=== PATIENT | female | born 1945 | race Caucasian/White ===

== ENCOUNTER → 2016-05-05 | Outpatient (CLI) | payer OTHER ==
[~2016-05-05] MED LIST: LIPITOR PO; MAXZIDE 75/50 T1 TAB PO; SYNTHROID PO
--- NOTE | ~2016-05-05 | BD1 ---
[facility] A Service of [facility] & [facility] RADIOLOGY TEXT RESULTS PATIENT: PATRICIA MANCILLA LOCATION: [facility] : [birth year] UNIT #: [id number] AGE: [address]: PAULINA CUTLER APRN SEX: F ORDER DR: [id number] [facility] [address] [place], [place] [address] [id number] O MR#: [id number] Acc #: [id number] NAME: PATRICIA MANCILLA : 1945 SEX: F STUDY DATE/TIME: 05/05/2016 15:16 UNIT: [facility] ROOM: STUDY DESCRIPTION: BD Dexa Bone Dens 1+ Site Attending Physician: Paulina Cutler M.D. Ordering Physician: Paulina Cutler M.D. Primary Care Physician: Paulina Cutler M.D. MEDICAL IMAGING REPORT This report is preliminary unless electronic signature is present EXAM DXA scan 05/05/2016 HISTORY Status post menopause with no hormone replacement therapy. Osteopenia. Removal of both ovaries and hysterectomy. Thyroid medication for 20 years. FINDINGS Bone mineral density in the lumbar spine from L1-L4 is 0.851 g/cm2 which is 1.8 standard deviations below the mean when compared to reference population which is characteristic of osteopenia. This is 0.3 standard deviations above the mean when compared to the age-matched population. Compared with 03/05/2014 there has been a decrease in bone mineral density in the lumbar spine of 0.2%. Bone mineral density in the left femoral neck was 0.706 g/cm2 which is 1.3 standard deviations below the mean when compared to the young adult reference population which is characteristic of osteopenia. This is 0.5 standard deviations above the mean when compared to the age-matched population. Compared with 03/05/2014 there has been a decrease in bone mineral density in the left hip of 9.3%. IMPRESSION Bone mineral density in the lumbar spine and the left hip characteristic of osteopenia. Compared with 03/05/2014 there has been a decrease in bone mineral density in the lumbar spine and the left hip. Dictated by... Edmundo R. Neville, M.D. THIS IS AN ELECTRONICALLY VERIFIED REPORT Edmundo Lozada M.D. at 05/06/2016 10:54 AM PAOLO/emileer TD: 05/05/2016 20:17 [facility]. [facility] A Service of [facility] & [facility] RADIOLOGY TEXT RESULTS PATIENT: PATRICIA MANCILLA LOCATION: [facility] : [birth year] UNIT #: [id number] AGE: [address]: PAULINA CUTLER APRN SEX: F ORDER DR: SURENDRA #: [id number] MEDICAL IMAGING REPORT COPY
== END | disposition home or self-care (01) ==
LOC: CWCC 14:50
DX: Z78.0 Asymptomatic menopausal state (principal); M85.89 Other specified disorders of bone density and structure, multiple sites; Z88.0 Allergy status to penicillin
CPT/HCPCS: 77080

== ENCOUNTER → 2016-05-29 | Outpatient (CLI) | payer OTHER ==
--- NOTE | ~2016-05-29 | MY11 ---
[facility] A Service of [facility] RADIOLOGY TEXT RESULTS PATIENT: PATRICIA MANCILLA LOCATION: [facility] : 47 UNIT #: [id number] AGE: [address]: PAULINA CUTLER APRN SEX: F ORDER DR: [id number] [facility] [address] [place], [place] [address] [id number] O MR#: [id number] Acc #: [id number] NAME: PATRICIA MANCILLA : 1945 SEX: F STUDY DATE/TIME: 05/29/2016 15:46 UNIT: [facility] ROOM: STUDY DESCRIPTION: MY Mammogram Screening Dig Venu Attending Physician: Paulina Cutler M.D. Referring Physician: Paulina Cutler M.D. Ordering Physician: Paulina Cutler M.D. Primary Care Physician: Paulina Cutler M.D. MEDICAL IMAGING REPORT This report is preliminary unless electronic signature is present EXAM Digital screening mammogram, 05/29/2016. HISTORY 71-year-old woman; positive family history, aunt. Previous left breast biopsy. Patient on replacement hormones. Annual screening. COMPARISONS Mammograms date to 11/02/2005, with most recent 05/09/2015. FINDINGS Digital imaging of each breast was completed, utilizing screening protocol. Review includes FDA-approved CAD device. Breast parenchyma is partially fatty replaced and mildly heterogeneous, with scattered parenchymal opacities remaining in each breast. Mild parenchymal dominance, upper outer quadrant, right breast, is stable. There is no interval-occurring breast mass. There are no suspicious microcalcification and no architectural deformity. IMPRESSION Stable benign mammogram. Annual screening recommended. Patients over the age of 40 are entered into a reminder system with target due date for the next mammogram. A result letter will also be sent to the patient. BIRADS: 2 Benign finding. Dictated by... [facility] A Service of [facility] & [facility] RADIOLOGY TEXT RESULTS PATIENT: PATRICIA MANCILLA LOCATION: [facility] : 47 UNIT #: [id number] AGE: [address]: PAULINA CUTLER APRN SEX: F ORDER DR: Oh Hewitt M.D. THIS IS AN ELECTRONICALLY VERIFIED REPORT Oh Hewitt M.D. at 06/01/2016 8:01 AM Nickolas TD: 05/29/2016 18:24 JOB #: [id number] MEDICAL IMAGING REPORT Page 1 of 1 COPY
== END | disposition home or self-care (01) ==
LOC: CWCC 15:25
DX: Z12.31 Encounter for screening mammogram for malignant neoplasm of breast (principal); Z80.3 Family history of malignant neoplasm of breast; Z79.890 Hormone replacement therapy; Z98.890 Other specified postprocedural states
CPT/HCPCS: G0202